=== PATIENT | female | born 1960 | race Two or more races ===

== ENCOUNTER → 2022-06-14 13:46 | Outpatient (BNVA) | payer OTHER, SELFPAY | PROVIDERS: PCP Student in an Organized Health Care Education/Training Program; Visit Provider Student in an Organized Health Care Education/Training Program | DX: Z13.89 Encounter for screening for other disorder (principal) ==

== ENCOUNTER 2022-06-20 09:20 | Outpatient (REF) | payer OTHER, SELFPAY ==
--- NOTE | ~2022-06-20 | XR_ITS ---
EXAMINATION: XR HANDS/WRISTS, BILATERAL XR ELBOWS, BILATERAL CLINICAL INFORMATION: Rheumatoid arthritis. COMPARISON: None TECHNIQUE: 4 views of the hands and wrists and 3 views of the elbows. FINDINGS: RIGHT ELBOW: There is no evidence of acute fracture, dislocation, or effusion. There is evidence for medial and lateral epicondylitis with calcific spurring. There is some degenerative spurring about the coronoid process. No erosive changes seen. LEFT ELBOW: There is no evidence of acute fracture or dislocation of the left elbow. No left elbow effusion identified. No erosive changes are seen. There is some calcification seen about the medial and lateral epicondyles consistent with calcific epicondylitis. Joint spaces are maintained. RIGHT HAND AND WRIST: There appears to be some mild periarticular osteopenia present. The wrist appears unremarkable without erosion, fracture, or joint space narrowing. There appears to be some soft tissue swelling about the 2nd and 3rd metacarpophalangeal joints but without joint space narrowing or erosive change. There appears be a small erosion with sclerotic margin about the radial para-articular head of the 4th proximal phalanx. There are some degenerative bony densities seen about the 2nd and 3rd proximal and distal interphalangeal joints. There appears to be a Heberden node involving the 2nd distal interphalangeal joint. LEFT HAND AND WRIST: There is no evidence of acute fracture or dislocation of the left hand or wrist. There is degenerative spurring and sclerosis about the 1st carpometacarpal joint. There is some soft tissue swelling about the 2nd and 3rd metacarpophalangeal joints but without underlying bony abnormality appreciated. There is some mild degenerative spurring seen involving the 2nd and 3rd distal interphalangeal joints and 1st interphalangeal joint. No definite erosive changes identified. XR/XR elbow RT min 3V IMPRESSION: Soft tissue swelling without underlying bony abnormality involving the 2nd and 3rd metacarpophalangeal joints. Degenerative change of the 1st carpometacarpal joint of the left hand. Changes predominantly of osteoarthritis with no significant erosive changes appreciated.
[2022-06-20 09:43] LABS: MANUAL DIFF FLAG NO
[2022-06-20 10:24] LABS: Basophils Percent Auto 0.6 % (0-2); Eosinophils Absolute Auto 0.1 X10*3/uL (0.0-0.4); Eosinophils Percent Auto 1.8 % (0-4); Hematocrit 45.8 % (37.0-47.0); Hemoglobin 14.7 g/dl (12.0-16.0); Imm Gran Abs Auto 0.03 X10*3/uL (0.00-0.03); Imm Gran Pct Auto 0.4 % (0.0-0.4); Lymphocytes Absolute Auto 2.5 X10*3/uL (1.2-4.9); Lymphocytes Percent Auto 36.5 % (20-40); Mean Corpuscular HGB Conc 32.1 g/dl (31.0-35.0); Mean Corpuscular Hemoglobin 27.8 pg (27.0-33.0); Mean Corpuscular Volume 86.6 fL (80.0-98.0); Mean Platelet Volume 9.7 fL (9.4-12.3); Monocytes Absolute Auto 0.4 X10*3/uL (0.1-1.2); Monocytes Percent Auto 5.9 % (2-11); Neutrophils Absolute Auto 3.7 x10*3/uL (2.0-8.3); Neutrophils Percent Auto 54.8 % (45-73); Platelet Count 258 X10*3/uL (160-400); Red Blood Count 5.29 X10*6/uL (4.20-5.50); Red Cell Distribution Width 13.3 % (11.0-16.0); White Blood Count 6.8 X10*3/uL (4.8-10.8)
[2022-06-20 10:37] LABS: Alanine Aminotransferase 14 U/L (0-31); Albumin Level 4.2 g/dL (3.5-5.0); Alkaline Phosphatase 69 U/L (39-117); Anion Gap 16 (12-20); Aspartate Amino Transferase 22 U/L (5-31); Bilirubin Total 0.4 mg/dL (0.0-1.0); Blood Urea Nitrogen 20 mg/dL (9-16); C Reactive Protein 0.19 mg/dL (< or = 0.50); Calcium 9.5 mg/dL (8.4-10.2); Carbon Dioxide 24 mmol/L (22-29); Chloride 105 mmol/L (96-108); Estimated Glomerular Filt Rate > 60; Glucose Random 91 mg/dL (60-115); Potassium 4.8 mmol/L (3.3-5.1); Rheumatoid Factor < 13.0 IU/mL (<15.0); Sodium 140 mmol/L (135-145)
[2022-06-20 11:05] LABS: Erythrocyte Sedimentation Rate 10 MM/HR (0-20)
[2022-06-20 12:20] LABS: Appearance Urine Clear; Color Urine Yellow; Glucose Urine UA Negative (Negative); Leukocyte Esterase Urine Negative (Negative); Nitrite Urine Negative (Negative); PH 5.5 (5.0-9.0); Specific Gravity - Urine >= 1.030 (1.005-1.025); Urine Blood Negative (Negative); Urine Ketones Negative (Negative); Urine Protein Negative (Neg-Trace)
[2022-06-20 12:23] LABS: Bacteria Urine None Seen (None Seen); Hyaline Casts Urine 0-2 /LPF (0-2); RBC Urine 0-2 /HPF (0-2); Squamous Epithelial Cell Urine 0-2 /HPF (0-2); WBC Urine 0-5 /HPF (0-5)
[2022-06-20 13:34] LABS: Protein/Creatinine Ratio, Ur 0.08 (<0.2); Total Protein Urine Random 13 mg/dL (<12)
[2022-06-21 04:54] LABS: HBc Num1 0.09 S/CO (0.00-0.79); HBsAGNum1 0.27 S/CO (0.00-0.99); Hepatitis A Antibody IgM 0.17 Index (0-0.79); Hepatitis B Core Antibody Nonreactive (Nonreactive); Hepatitis B Surface Antigen Negative (Negative); ~HepC Num1 0.06 S/CO (0.00-0.79); ~Hepatitis A Antibody IgM Nonreactive (Nonreactive); ~Hepatitis B Surface Antibody NONREACTIVE (Nonreactive); ~Hepatitis C Antibody Nonreactive (Nonreactive)
[2022-06-23 00:49] LABS: TS Negative Control Passed; TS Panel A 0; TS Panel B 0; TS Positive Control Passed; TSpotTB Negative (Negative)
[2022-06-23 13:03] LABS: IgA 217 mg/dL (70-320); IgG 941 mg/dL (600-1540); IgM 97 mg/dL (50-300)
[2022-06-23 15:43] LABS: Complement C3 136 mg/dL (83-193)
[2022-06-23 23:18] LABS: Anti DNA DS Antibody <1 IU/mL; Antibody to SS-A Antigen <1.0 NEG AI (<1.0 NEG); Antibody to SS-B Antigen <1.0 NEG AI (<1.0 NEG); Myeloperoxidase Antibody <1.0 AI; Proteinase 3 PR3 Antibodies <1.0 AI; SM/Ribonucleoprotein Ab <1.0 NEG AI (<1.0 NEG); Smith Protein <1.0 NEG AI (<1.0 NEG)
[2022-06-24 00:19] LABS: Prot Elec - Albumin 4.5 g/dL (3.8-4.8); Prot Elec - Alpha1 0.3 g/dL (0.2-0.3); Prot Elec - Alpha2 0.8 g/dL (0.5-0.9); Prot Elec - Beta 1 0.4 g/dL (0.4-0.6); Prot Elec - Beta 2 0.4 g/dL (0.2-0.5); Prot Elec - Gamma 0.9 g/dL (0.8-1.7); Prot Elec - Total Protein 7.3 g/dL (6.1-8.1)
[2022-06-24 13:48] LABS: DNAds, Crithidia Antibody Negative (Negative)
[2022-06-26 15:34] LABS: Cyclic Citrullinated Peptide <16 UNITS
[2022-06-26 20:53] LABS: HLA B27 Negative (Negative)
[2022-06-27 06:32] LABS: Angiotensin Converting Enzyme 38.6 U/L (9-67)
[2022-06-27 10:29] LABS: Anti Nuclear Antibody Pattern Nuclear, Homogeneous; Anti Nuclear Antibody Screen POSITIVE (NEGATIVE)
[2022-07-01 14:03] LABS: Lysozyme, Serum 6.3 mcg/mL (5.0-11.0)
== END 2022-06-20 09:21 | disposition home or self-care (01) ==
LOC: HO.LAB 09:20
PROVIDERS: PCP Student in an Organized Health Care Education/Training Program; Visit Provider Student in an Organized Health Care Education/Training Program
DX: M32.9 Systemic lupus erythematosus, unspecified (principal); D86.9 Sarcoidosis, unspecified; M25.521 Pain in right elbow; I77.6 Arteritis, unspecified; M06.9 Rheumatoid arthritis, unspecified; Z11.59 Encounter for screening for other viral diseases; Z11.7 Encounter for testing for latent tuberculosis infection; Z87.39 Personal history of other diseases of the musculoskeletal system and connective tissue
CPT/HCPCS: 36415; 73080; 73110; 73130; 80053; 81001; 82164; 82784; 84156; 84165; 85025; 85549; 85652; 86021; 86038; 86039; 86140; 86160; 86200; 86225; 86235; 86255; 86334; 86431; 86481; 86704; 86706; 86709; 86803; 86812; 87340

== ENCOUNTER → 2022-07-26 10:51 | Outpatient (BNVA) | payer OTHER, SELFPAY | PROVIDERS: PCP Student in an Organized Health Care Education/Training Program; Visit Provider Student in an Organized Health Care Education/Training Program | DX: Z13.89 Encounter for screening for other disorder (principal) ==

== ENCOUNTER 2023-03-21 08:16 | Outpatient (AMB) | payer BC, SELFPAY ==
[2023-03-21 08:23] VITALS: BP 102/64; PULSE 84; TEMP 36; O2SAT 98; BMI 24.6
--- NOTE | 2023-03-21 08:23 | A.OFFVIS_ITS ---
Intake Vital Signs 03/21/23 08:23 Height 5 ft 1 in Weight 130 lb 4.691 oz BMI 24.6 BP 102/64 Blood Pressure Location Rt brachial Position Sitting Pulse 84 Pulse Source Pulse Oximeter Temp 96.8 F Temp Source Skin Pulse Oximetry (%) 98 Intake Visit Reasons: Scleritis Intake Note: Pt last seen 07/26/22, presents today for follow up. Would like to discuss concerns with eyes. 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 She states that she had scleritis flare recently. His that was treated with prednisolone eyedrops. States that prednisolone eyedrops work fairly quickly. This is her 5th flare-up this year. Patient states that she feels well overall. She denies any joint pain, swelling or stiffness. The only joint pain she mentions is minimal pain in her thumbs.. She was able to golf past summer with no issues. She denies any fevers, rashes, weight loss. initial history This is a 61-year-old female with a past medical history of dyslipidemia presents for evaluation of bilateral elbow pain. Patient stated that she was diagnosed with scleritis more than 10 years ago. She would have about 2 episodes a year that resolved with steroid eyedrops. Since this past summer patient has had 4-5 episodes that would resolve with steroid eyedrops. Patient stated that her mother likely has rheumatoid arthritis but she is not entirely sure. She stated that she was evaluated by capital equipment specialist many years ago and evaluation was unrevealing. She mentions that she has been having bilateral elbow pain for the last 5-6 months. Patient recently retired and has been quite active, she has been playing golf. She is no longer playing golf as it is winter time. Her elbow pain is worse in the morning. She sometimes has difficulty flexing her elbows or carrying light objects such as her cellphone. She denies any joint swelling. Over the last few months, She had pain on the outside of her right hip, was diagnosed with gluteal tendinitis and symptoms resolved with time. [facility], [facility] Medical History Scleritis of both eyes Hyperlipemia Right hip pain Surgical History History of oral surgery Family History Mother Rheumatoid arthritis Brother Acute arthritis Social History Household Members: Spouse Alcohol intake: current Patient Tobacco Use Status: Never used Tobacco Current occupational status: retired Review of Systems Eyes Details: Scleritis flare up Physical Exam Vital Signs: Last Vital Signs Temp 96.8 F 03/21/23 08:23 Pulse 84 03/21/23 08:23 BP 102/64 03/21/23 08:23 Pulse Ox 98 03/21/23 08:23 BMI result Body Mass Index 24.6 Const General: cooperative, healthy appearing, comfortable and no acute distress Nutritional Appearance: overweight Orientation/consciousness: patient oriented x3 Limitations: no limitations HEENT Mouth: moist mucous membranes Resp Effort & Inspection: normal respiratory effort and able to speak in complete sentences Auscultation: clear to auscultation bilaterally Cardio Rate: regular rate Rhythm: regular rhythm GI Inspection: No distended Palpation (GI): Soft to palpation and nontender Skin General skin exam: no rashes or lesions noted Neuro General: patient oriented x3 Extrem Other: No elbow tenderness or swelling bilaterally and no pain with full flexion and extension Negative resisted wrist extension bilaterally Few Heberden's nodes nontender Normal nailfold capillaroscopy No active synovitis otherwise Normal range of motion of both shoulders Results Reviewed Results Reviewed: Right hip x-ray 01/2022? Impression:? No acute fracture.? Normal alignment.? Mild degenerative changes of the bilateral hips and bilateral sacroiliac joints. Amorphous calcifications project over the tissues along the dorsal aspect of the right proximal femoral shaft in the expected location of the gluteus thiago tendon insertion site.? This can be seen in hydroxyapatite deposition disease Labs 10/2021? CBC and CMP unremarkable TSH 0.9 HbA1c 5.6% Laboratory Tests C N XR/XR hand wrist RT IMPRESSION: Soft tissue swelling without underlying bony abnormality involving the 2nd and 3rd metacarpophalangeal joints. ? Degenerative change of the 1st carpometacarpal joint of the left hand. ? Changes predominantly of osteoarthritis with no significant erosive changes appreciated.? Labs 06/2022? CBC unremarkable? CMP unremarkable? ESR/CRP normal? DEMARCUS level normal? SPEP and immunofixation normal RF/CCP negative MARITA 1-80 homogeneous MPO/PR3 negative SSA/SSB/Jones/TRUCKER HAND/dsDNA/C3/C4/HLA B27 all negative/normal Hepatitis panel negative? 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 There is a questionable history of RA in her mother. Patient states that she has been getting more frequent scleritis flare-ups. She states that this is her 5th scleritis flare-up this year. States that it gets treated fairly rapidly with prednisolone eyedrops. Upon evaluation I do not see any signs of an underlying systemic autoimmune rheumatic disease. There is no active synovitis. There are no rashes, fevers. Comprehensive serology is unremarkable except for a positive MARITA 1-80 homogeneous pattern which is nonspecific. 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
== END 2023-03-21 09:06 | disposition home or self-care (01) ==
PROVIDERS: PCP Student in an Organized Health Care Education/Training Program; Visit Provider Student in an Organized Health Care Education/Training Program
DX: H15.003 Unspecified scleritis, bilateral (principal)
CPT/HCPCS: 99214

== ENCOUNTER → 2023-03-21 08:16 | Outpatient (BNVA) | payer BC, SELFPAY | PROVIDERS: PCP Student in an Organized Health Care Education/Training Program; Visit Provider Student in an Organized Health Care Education/Training Program ==